=== PATIENT | male | born 1980 | race Caucasian/White ===

== ENCOUNTER 2024-11-13 13:01 | Emergency (ER) | payer SELFPAY ==
[~2024-11-13] VITALS: Ht 172.7 cm; Wt 72.6 kg
[~2024-11-13 13:01] MED LIST: HYDACE5 PO; NAPR550 PO
[2024-11-13] MEDS ORDERED: OxyCODONE 5 mg/Acetamin 325 mg TABLET PO ONE (13:30)
[2024-11-13] MEDS ORDERED: CEPH500 PO (13:54)
[2024-11-13 15:00] VITALS: BP 147/84
== END 2024-11-13 15:28 | disposition home or self-care (01) ==
LOC: ER 13:01
DX: S71.112A Laceration without foreign body, left thigh, initial encounter (principal); W29.3XXA Contact with powered garden and outdoor hand tools and machinery, initial encounter
CPT/HCPCS: A9270